=== PATIENT | female | born 1965 | race Caucasian/White ===

== ENCOUNTER 2020-01-30 01:12 | Emergency (ER) | payer BC ==
[~2020-01-30] VITALS: Ht 157.5 cm; Wt 77.2 kg
[2020-01-30 01:24] VITALS: Ht 157.5 cm; Wt 77.2 kg
[2020-01-30 02:12] LABS: BASOPHIL % 0.6 % (0-2); PLATELET COUNT 243 x10^3mcL (130-400); RED CELL DISTRIBUTION WIDTH 14.4 % (11.5-14.5)
[2020-01-30 02:17] LABS: CALCIUM 9.1 mg/dL (8.5-10.1); CARBON DIOXIDE 25.7 mmol/L (21-32); CREATININE SERUM 1.1 mg/dL (0.6-1.0); POTASSIUM SERUM 4.2 mmol/L (3.5-5.1)
[2020-01-30 02:21] LABS: ALBUMIN 3.6 g/dL (3.4-5.0); BILIRUBIN TOTAL 0.37 mg/dL (0.20-1.00); TOTAL PROTEIN, SERUM 7.7 g/dL (6.4-8.2)
[2020-01-30 02:44] LABS: microscopic required? YES; urine erythrocyte 3+ (NEGATIVE)
[2020-01-30 03:54] VITALS: BP 137/89
== END 2020-01-30 03:54 | disposition home or self-care (01) ==
LOC: ED 01:12
PROVIDERS: Emergency Medicine
DX: N39.0 Urinary tract infection, site not specified (principal); Z98.890 Other specified postprocedural states
CPT/HCPCS: J0696; J1885